=== PATIENT | female | born 1985 | race Caucasian/White ===

== ENCOUNTER 2016-03-03 09:26 | Outpatient (RCR) | payer OTHER | END 2016-04-10 11:26 | LOC: WSOH 09:26 | DX: M25.571 Pain in right ankle and joints of right foot (principal) ==

== ENCOUNTER → 2016-11-27 | Outpatient (REF) | LOC: WSOH 14:13 | DX: Z02.89 Encounter for other administrative examinations (principal) ==

== ENCOUNTER 2023-02-26 10:49 | Outpatient (RCR) | payer OTHER ==
[~2023-02-26 10:49] MED LIST: IBU800 M1 PO; PRENATAL; VALTREX 50500 MG/TAB PO
== END 2023-03-01 ==
LOC: WSOH
DX: S67.21XD Crushing injury of right hand, subsequent encounter (principal); M12.261 Villonodular synovitis (pigmented), right knee; J45.909 Unspecified asthma, uncomplicated; Y99.0 Civilian activity done for income or pay